=== PATIENT | female | born 1940 | race Caucasian/White ===

== ENCOUNTER 2016-09-16 15:46 | Emergency (ER) | payer MEDICARE, OTHER ==
--- NOTE | ~2016-09-16 | CT2 ---
[facility] A Service of [facility] RADIOLOGY TEXT RESULTS PATIENT: JASVIR CEE LOCATION: [facility] : 44 UNIT #: [id number] AGE: [address]: Anthony Yi MD SEX: F ORDER DR: [id number] [facility] [address] [place], [place] [address] [id number] MR#: [id number] Acc #: [id number] NAME: JASVIR CEE. : 1940 SEX: F STUDY DATE/TIME: 09/16/2016 20:24 UNIT: [facility] ROOM: STUDY DESCRIPTION: CT Abd and Pelv W Cont Attending Physician: Anthony Yi M.D. Ordering Physician: Anthony Yi M.D. Primary Care Physician: Rusty Wood M.D. MEDICAL IMAGING REPORT This report is preliminary unless electronic signature is present EXAM CT abdomen and pelvis with contrast HISTORY Abdominal pain, right-sided pain with nausea for [address] abdomen and pelvis, 01/24/2015 FINDINGS Axial images performed through the abdomen and pelvis following IV and oral contrast. Multiplanar reconstructed images reviewed at a workstation. This CT exam was performed with one or more of the following radiation dose reduction techniques: Automatic exposure control, adjustment of mA and/or kV according to patient size, and iterative reconstruction. ABDOMEN: Lung bases unremarkable. Liver and spleen appear normal. The gallbladder is absent. Mild dilatation of the common bile duct but no obstructing lesions seen. Pancreas, kidneys and adrenal glands appear normal. No free air or free fluid. There is a large ventral hernia and defect in the anterior abdominal wall, which is estimated at least 7 cm transverse dimensions and up to 16.5 cm cephalocaudal dimension. This contains multiple loops of small bowel, which are partially contrast-filled. No convincing evidence of a high-grade obstruction. The hernia represents a new finding from the January 2015 study. PELVIS: The bladder is moderately distended. The uterus unremarkable. Osseous structures demonstrate multilevel facet arthropathy. IMPRESSION [facility] A Service of [facility] RADIOLOGY TEXT RESULTS PATIENT: JASVIR CEE LOCATION: [facility] #: [id number] : 44 UNIT #: [id number] AGE: [address]: Anthony Yi MD SEX: F ORDER DR: 1. Large ventral hernia, which represents a new finding from the patient's study of January 2015. This contains multiple loops of small bowel and omentum but no convincing evidence of incarceration or high-grade obstruction. 2. Status post cholecystectomy with mild common bile duct dilatation. 3. Multilevel facet arthropathy lower lumbar spine. Dictated by... Parish Pierre M.D. THIS IS AN ELECTRONICALLY VERIFIED REPORT Parish Pierre M.D. at 09/17/2016 1:17 PM EVELIA/keara TD: 09/16/2016 21:40 JOB #: [id number] MEDICAL IMAGING REPORT Page 1 of 1 COPY
--- NOTE | ~2016-09-16 | EKG ---
PATIENT: JASVIR CEE UNIT #: [id number] Ventricular Rate: 85 BPM Atrial Rate: 85 BPM P-R Interval: 182 ms QRS Duration: 76 ms Q-T Interval: 370 ms QTC Calculation(Bezet): 440 ms P [place]: 48 degrees Calculated R [place]: 31 degrees Calculated T [place]: 47 degrees Diagnosis Line: Normal sinus rhythm Diagnosis Line: Normal ECG Diagnosis Line: When compared with ECG of 24-JAN-2015 09:10, Diagnosis Line: No significant change was found Diagnosis Line: Confirmed by GUILHERME RAMÍREZ MD ([id number]) on 09/18/2016 Diagnosis Line: 5:36:25 AM INTERPRETING MD: DARRELL FINLEY
[~2016-09-16 15:46] MED LIST: AMITRIPTYLINE H25 MG PO; AMITRYPTYLINE PO; ASPIRIN81 M1 PO; ASPIRIN81 MG PO; CALCIUM 600 +1 EAC3 PO; CALCIUM PO; CARAFATE1 G; CLARITIN10 M2 PO; CLEOCIN PO; FLEXERIL10 MG PO; HYDROCHLOROTHIA25 MG PO; HYDROCODON-ACE1 EAC9 PO; LEVAQUIN PO; LORAZEPAM1 MG PO; LORTAB 5/500 TA1 TA2 PO; METOPROLOL TAR100 MG PO; NITROGLYGERIN0.4 MG SL; OYSTER CALCIUM500 MG PO; PHENERGAN25 M1 PO; PROTONIX PO; TOPROL XL 50 MG50 MG PO; VICODIN 5-3001 EACH PO; VICODIN PO; VITAMIN D-32000 UNI1 PO; VITAMIN D1000 UNIT PO; VITAMIN D400 UNI1 PO; VITAMIN D400 UNI2 PO; WELLBUTRIN SR150 MG PO; ZANTAC150 MG PO
[2016-09-16 17:35] LABS: URINE SOURCE CLEAN CATCH
[2016-09-16 17:39] LABS: URINE APPEARANCE CLEAR; URINE BILIRUBIN NEG (NEG); URINE BLOOD TRACE (NEG); URINE COLOR YELLOW; URINE GLUCOSE NEG (NEG); URINE KETONE NEG (NEG); URINE LEUKOCYTE ESTERASE NEG (NEG); URINE NITRATE NEG (NEG); URINE PROTEIN NEG (NEG); URINE SPECIFIC GRAVITY 1.006 (1.003-1.035); URINE UROBILINOGEN 0.2 MG/DL (NEG)
[2016-09-16 17:42] LABS: CULTURE INDICATED? NO; URBCS1 AUWI 0-2 /[HPF] (0-2); URINE BACTERIA AUWI NEG (NEGATIVE); URINE SQUAMOUS EPITHELIAL CELL NONE SEEN /[HPF]; UWBCS1 AUWI 0-2 (0-5)
[2016-09-16 17:54] LABS: BASOPHIL% 0.4 % (0-2.5); DIFF IND NO; EOSINOPHIL% 0.4 % (0.0-7.0); HEMATOCRIT 40.5 % (35.0-45.0); HEMOGLOBIN 13.5 gm/dL (12.0-16.0); LYMPHOCYTE# 1.4 X10e3 (1.0-3.5); LYMPHOCYTE% 21.1 % (17.0-45.0); MEAN CELL VOLUME 97.1 FL (83-96); MEAN CORPUSCULAR HEMOGLOBIN 32.3 PG (28-34); MEAN CORPUSCULAR HGB CONC 33.3 g/dL (30-36); MEAN PLATELET VOLUME 7.4 FL (6.5-11.5); MONOCYTE# 0.3 X10e3 (0-1.0); MONOCYTE% 4.5 % (3.0-12.0); NEUTROPHIL# 4.8 X10e3 (1.5-7.1); NEUTROPHIL% 73.6 % (40-75); PLATELET COUNT 202 X10e3 (140-420); RED BLOOD COUNT 4.17 X10e (3.90-5.30); RED CELL DISTRIBUTION WIDTH 13.1 % (11.0-15.5); WHITE BLOOD COUNT 6.5 X10e3 (4.0-10.5)
[2016-09-16 18:19] LABS: ALBUMIN SERUM 4.4 g/dL (3.5-5.0); BILIRUBIN, DIRECT 0.1 mg/dL (0.0-0.2); BILIRUBIN,INDIRECT 0.4 mg/dL (0.0-0.9); BILIRUBIN,TOTAL 0.5 mg/dL (0.2-2.0); BUN/CREATININE RATIO 11.25; CALCIUM SERUM 9.3 mg/dL (8.4-10.2); CREATININE SERUM 0.8 mg/dL (0.6-1.4); GLOM FILT RATE Estimated 73.2 mL/min (>60); POTASSIUM 3.8 mmol/L (3.5-5.1); PROTEIN TOTAL SERUM 8.3 g/dL (6.0-8.3)
== END 2016-09-16 21:58 | disposition home or self-care (01) ==
LOC: CED 15:46
DX: K43.9 Ventral hernia without obstruction or gangrene (principal); I10 Essential (primary) hypertension; M19.90 Unspecified osteoarthritis, unspecified site; Z98.890 Other specified postprocedural states
CPT/HCPCS: 36415; 74177; 80048; 80076; 81003; 83690; 85025; 93005; 96374; 96375; 99284; J2270; J2405; Q9967